=== PATIENT | male | born 1940 | race Native Hawaiian/Other Pacific Islander ===

== ENCOUNTER 2021-01-31 15:35 | Outpatient (CLI) | payer OTHER, MEDICARE ==
[2021-01-31 16:05] LABS: PLATELET COUNT 186 K/uL (142-355)
[2021-01-31 16:30] LABS: POTASSIUM 4.7 mmol/L (3.6-5.2)
== END 2021-01-31 21:16 | disposition home or self-care (01) ==
LOC: LABW 15:35
PROVIDERS: ATTEND Internal Medicine Cardiovascular Disease
DX: E11.69 Type 2 diabetes mellitus with other specified complication (principal); Z79.899 Other long term (current) drug therapy; R97.20 Elevated prostate specific antigen [PSA]
CPT/HCPCS: 36415; 80053; 80061; 83036; 84153; 85027